=== PATIENT | female | born 1970 | race American Indian/Alaskan Native ===

== ENCOUNTER 2017-01-27 10:23 | Outpatient (CLI) | payer MEDICARE ==
--- NOTE | 2017-01-27 11:29 | Ultrasound Report ---
LEFT BREAST ULTRASOUND: 01/27/17 10:23:00 CLINICAL: History of breast cancer status post bilateral mastectomy with implant reconstruction. Chronic pain behind the left implant. COMPARISON: 10/25/15 FINDINGS: Ultrasound of the left breast(including all four quadrants and the retroareolar area) was performed and demonstrated intact implant with normal overlying fatty structures. No mass, cyst or shadowing. IMPRESSION: Normal study with an intact implant. No explanation for pain. BI-RADS 1 - - Negative
== END 2017-01-27 10:24 | disposition home or self-care (01) ==
LOC: SPVWC 10:23
PROVIDERS: ATTEND Internal Medicine Hematology & Oncology
DX: T85.848A Pain due to other internal prosthetic devices, implants and grafts, initial encounter (principal); C50.912 Malignant neoplasm of unspecified site of left female breast; E53.8 Deficiency of other specified B group vitamins; Z98.82 Breast implant status; Z90.13 Acquired absence of bilateral breasts and nipples

== ENCOUNTER 2017-12-01 15:05 | Outpatient (CLI) | payer MEDICARE ==
--- NOTE | 2017-12-02 15:20 | Magnetic Resonance Report ---
BILATERAL BREAST MRI WITHOUT AND WITH CONTRAST: 12/01/17 CLINICAL: Breast cancer survivor status post bilateral mastectomy with left TRAM and implant reconstruction and right implant reconstruction. New palpable lump at the right breast mound. COMPARISON: 10/25/15 TECHNIQUE: Axial 1.0-mm T1 without, axial high resolution 2.0-mm T2, , axial STIR and axial and sagittal STIR with silicone excitation water saturation, sagittal T2 and axial 1.0-mm dynamic Vibrant high-resolution postcontrast T1 fat saturation sequences on a 1.5 Bobbi magnet. The examination was performed with an 8 channel dedicated [place] breast coil. Post processing with CAD and subtraction was performed on an [email or web address] workstation. 20.0 cc of Multihance was injected without incident for the contrast portion of the exam. Consent was obtained prior to the administration of the contrast. FINDINGS: Right: No mass or suspicious enhancement. Focal capsular thickening may correlate with a palpable lump at the breast mound. It demonstrates no enhancement. There is also a 7 mm subcutaneous oval smooth cyst at 8 o'clock approximately 3 cm lateral to the midline of the implant which may also be palpable. Intact silicone implant with no evidence of leakage. No suspicious lymph nodes. Left: No mass or suspicious enhancement of the left breast. Intact silicone implant with no evidence of leakage. No suspicious lymph nodes. IMPRESSION: 1. Benign focal thickening of the right implant capsule and a 7 mm benign subcutaneous cyst at 8 o'clock of the reconstructed right breast. Both of these findings may be palpable. 2. No suspicious finding of either breast. 3. No suspicious lymph nodes. Right BIRADS: 2 - - Benign Left BIRADS: 1 - - Negative
== END 2017-12-01 15:06 | disposition home or self-care (01) ==
LOC: SPVIMAG 15:05
PROVIDERS: ATTEND Surgery
DX: N63.13 Unspecified lump in the right breast, lower outer quadrant (principal); I10 Essential (primary) hypertension; E78.00 Pure hypercholesterolemia, unspecified; K21.9 Gastro-esophageal reflux disease without esophagitis; M19.90 Unspecified osteoarthritis, unspecified site; J45.909 Unspecified asthma, uncomplicated; Z90.721 Acquired absence of ovaries, unilateral; Z90.12 Acquired absence of left breast and nipple
CPT/HCPCS: A9577; C8908; 77059

== ENCOUNTER 2018-01-21 11:00 | Outpatient (CLI) | payer MEDICARE | END 2018-01-21 11:01 | disposition home or self-care (01) | LOC: SLR 11:00 | PROVIDERS: ATTEND Otolaryngology | DX: G47.33 Obstructive sleep apnea (adult) (pediatric) (principal); R40.0 Somnolence; E66.9 Obesity, unspecified; I10 Essential (primary) hypertension; E78.00 Pure hypercholesterolemia, unspecified; M19.90 Unspecified osteoarthritis, unspecified site; K21.9 Gastro-esophageal reflux disease without esophagitis; Z90.12 Acquired absence of left breast and nipple; Z90.722 Acquired absence of ovaries, bilateral | CPT/HCPCS: 95810 ==

== ENCOUNTER 2018-02-01 11:00 | Outpatient (CLI) | payer MEDICARE | END 2018-02-01 11:01 | disposition home or self-care (01) | LOC: SLR 11:00 | PROVIDERS: ATTEND Otolaryngology | DX: G47.33 Obstructive sleep apnea (adult) (pediatric) (principal); R40.0 Somnolence; R06.83 Snoring; E78.00 Pure hypercholesterolemia, unspecified; I10 Essential (primary) hypertension; K21.9 Gastro-esophageal reflux disease without esophagitis; M19.90 Unspecified osteoarthritis, unspecified site; Z90.722 Acquired absence of ovaries, bilateral; Z90.12 Acquired absence of left breast and nipple | CPT/HCPCS: 95811 ==

== ENCOUNTER 2019-09-07 11:58 | Outpatient (CLI) | payer MEDICAID ==
--- NOTE | 2019-09-07 15:30 | Magnetic Resonance Report ---
BILATERAL BREAST MR WITHOUT AND WITH GADOLINIUM INDICATION: Breast cancer survivor status post bilateral mastectomy, right implant reconstruction an d left TRAM implant reconstruction. Left breast pain. COMPARISONS: 12/01/2017 and 08/30/2015 TECHNIQUE: Axial 1.0 mm T1 without, axial high-resolution 2.0 mm T2 and axial 1.0 mm dynamic vibrant high-resolution postcontrast T1 fat saturation sequences on a 1.5 Bobbi magnet. The examination was p erformed with an 8-channel dedicated [place] breast coil. Post-processing with CAD and subtraction was performed on an [employer] workstation. 18.0 cc of MultiHance was injected without incident for the c ontrast portion of the exam. Consent was obtained prior to the administration of the contrast. FINDINGS: RIGHT BREAST: No mass or suspicious enhancement. Partial collapse of the right implant with positive" spaghetti signs". No suspicious lymph nodes. LEFT BREAST: No mass or suspicious enhancement. Intact implant. No suspicious lymph nodes. IMPRESSION: No suspicious findings. Right intracapsular implant rupture with partial collapse of the implant. No suspicious lymph nodes. No explanation for left breast pain. Recommend clinical follow-up . BI-RADS Category 2: Benign A normal MRI does not exclude the presence of some forms of breast malignancy as literature reports s uggest that some forms of ductal carcinoma in situ or lobular carcinoma, particularly, may not be det ected on MRI. The sensitivity and specificity of MRI for cancers under 5 mm may be reduced. MRI does not replace the recommendation for annual conventional mammographic evaluation and should be used as an adjunct to mammography and physical examination as necessary. Signer Name: Nato Anaya MD Signed: 09/07/2019 3:25 PM Workstation Name: [id number]
== END 2019-09-07 11:59 | disposition home or self-care (01) ==
LOC: SPVIMAG 11:58
PROVIDERS: ATTEND Surgery
DX: T85.41XA Breakdown (mechanical) of breast prosthesis and implant, initial encounter (principal); Y83.1 Surgical operation with implant of artificial internal device as the cause of abnormal reaction of the patient, or of later complication, without mention of misadventure at the time of the procedure; Y92.89 Other specified places as the place of occurrence of the external cause; Z90.13 Acquired absence of bilateral breasts and nipples; Z85.3 Personal history of malignant neoplasm of breast
CPT/HCPCS: A9577; C8908; 77049

== ENCOUNTER 2020-06-28 10:00 | Outpatient (CLI) | payer MEDICARE ==
[2020-06-28 11:57] LABS: Basophils # (Auto) 0.1 K/mm3 (0.0-0.1); Basophils % (Auto) 0.7 % (0.0-1.8); Eosinophils # (Auto) 0.1 K/mm3 (0.0-0.4); Eosinophils % (Auto) 1.1 % (0.0-4.3); Hematocrit 39.4 % (30.3-42.9); Hemoglobin 13.6 gm/dl (10.1-14.3); Lymphocytes # (Auto) 2.2 K/mm3 (1.2-5.4); Mean Corpuscular HGB Conc 35 % (30-34); Mean Corpuscular Volume 93 fl (79-97); Monocytes # (Auto) 0.7 K/mm3 (0.0-0.8); Monocytes % (Auto) 8.6 % (0.0-7.3); Platelet Count 247 K/mm3 (140-440); Red Blood Count 4.26 M/mm3 (3.65-5.03)
[2020-06-28 12:24] LABS: Blood Urea Nitrogen 13 mg/dL (7-17); Hemolysis Index 0
[2020-06-28 12:49] LABS: BUN/Creatinine Ratio 19
--- NOTE | 2020-06-28 14:51 | Anesthesia Consultation ---
Anesthesia Consult and Med Hx Date of service: 07/05/20 - Airway Anesthetic Teeth Evaluation: Chipped (cracked left upper molar) ROM Head & Neck: Adequate Mental/Hyoid Distance: Adequate Mallampati Class: Class II Intubation Access Assessment: Probably Good - Pulmonary Exam CTA: Yes - Cardiac Exam Cardiac Exam: RRR - Pre-Operative Health Status ASA Pre-Surgery Classification: ASA3 Proposed Anesthetic Plan: General - Pulmonary Hx Smoking: No Hx Asthma: Yes (last inhaler use 6-12 months ago) Hx Respiratory Symptoms: No Hx Sleep Apnea: Yes (noncompliant with CPAP) - Cardiovascular System Hx Hypertension: Yes Hx Heart Attack/AMI: No Hx Percutaneous Transluminal Coronary Angioplasty (PTCA): No Hx Cardia Arrhythmia: No - Central Nervous System CVA: No - Gastrointestinal Hx Ulcer: Yes - Endocrine Hx Renal Disease: Yes (hx CKD previously followed by nephrology; normal eGFR on recent labs) Hx Liver Disease: No Hx Insulin Dependent Diabetes: No Hx Non-Insulin Dependent Diabetes: No Hx Thyroid Disease: No - Other Systems Hx Cancer: Yes (hx breast ca) Hx Obesity: Yes (BMI 32) - Additional Comments Anesthesia Medical History Comments: Stopped ASA 06/26/20. No hx anesthetic complications.
[2020-06-28 15:50] VITALS: BP 137/79
[2020-07-05] MEDS ORDERED: ACETAMINOPHEN 500 MG TAB PO SCH (06:00)
[2020-07-05] MEDS ORDERED: LACTATED RINGERS 1,000 ML IV SCH (06:00)
[2020-07-05] MEDS ORDERED: MIDAZOLAM 2 MG/2 ML INJ IV NR (06:00)
[2020-07-05] MEDS ORDERED: GABAPENTIN 300 MG CAP PO NR (06:00)
[2020-07-05] MEDS ORDERED: SCOPOLAMINE TRANSDERMAL PATCH 72 HR TD NR (06:00)
== END 2020-06-28 23:59 | disposition home or self-care (01) ==
LOC: LAB 10:00 → EDSTATUS 07-05 07:30
PROVIDERS: ATTEND Plastic Surgery
DX: I12.9 Hypertensive chronic kidney disease with stage 1 through stage 4 chronic kidney disease, or unspecified chronic kidney disease (principal); N18.9 Chronic kidney disease, unspecified; J45.909 Unspecified asthma, uncomplicated; Z85.3 Personal history of malignant neoplasm of breast; Z90.13 Acquired absence of bilateral breasts and nipples
CPT/HCPCS: 36415; 80048; 85025; U0003